=== PATIENT | female | born 1960 ===

== ENCOUNTER 2021-01-24 05:45 | Day surgery (SDC) | payer OTHER ==
[~2021-01-24 05:45] MED LIST: ASACOR; AVALIDE 150-12.1 TA1 PO; HYDRALAZINE HCL25 MG PO; TOPROL XL25 M1 PO; TOPROL XL50 M1 PO
== END 2021-01-24 18:15 | disposition home or self-care (01) ==
LOC: CIR.AMB 05:45
PROVIDERS: ATTEND Orthopaedic Surgery Hand Surgery
DX: M19.042 Primary osteoarthritis, left hand (principal); Z20.822 Contact with and (suspected) exposure to COVID-19